=== PATIENT | female | born 1960 | race Caucasian/White ===

== ENCOUNTER 2018-02-19 10:41 | Emergency (ER) | payer BC ==
[~2018-02-19] VITALS: Ht 165.1 cm; Wt 81.0 kg
[2018-02-19] MEDS ORDERED: dexamethasone sod phosphate 10mg/ml inj IV STA (11:41)
[2018-02-19] MEDS ORDERED: diphenhydrAMINE 50 mg/ml inj IV ONE (11:45)
[2018-02-19] MEDS ORDERED: proCHLORperazine 10 MG/2 ml inj IV ONE (11:45)
[2018-02-19] MEDS ORDERED: normal saline 1000ML IV soln IVB ONE (11:45)
[2018-02-19 13:52] VITALS: BP 116/65
== END 2018-02-19 13:53 | disposition home or self-care (01) ==
LOC: ER 10:41
DX: G43.909 Migraine, unspecified, not intractable, without status migrainosus (principal)
CPT/HCPCS: 96374; 96375; 99285; J0780; J1100; J1200

== ENCOUNTER 2018-03-04 08:11 | Outpatient (CLI) | payer BC ==
[2018-03-04 09:28] LABS: BASOPHILS % (AUTO) 0.8 % (0-1); EOSINOPHILS # (AUTO) 0.1 X10'3 (0-0.9); EOSINOPHILS % (AUTO) 2.3 % (0-6); HEMATOCRIT 39.1 % (35.0-45.0); HEMOGLOBIN 13.2 g/dl (12.0-16.0); LYMPHOCYTES # (AUTO) 1.3 X10'3 (1.1-4.8); LYMPHOCYTES % (AUTO) 23.2 % (21-51); MEAN CORPUSCULAR HEMOGLOBIN 28.3 PG (27.0-31.0); MEAN CORPUSCULAR HGB CONC 33.7 % (33.0-36.5); MEAN CORPUSCULAR VOLUME 83.8 FL (78-98); MEAN PLATELET VOLUME 7.7 FL (7.4-10.4); MONOCYTES # (AUTO) 0.4 X10'3 (0-0.9); MONOCYTES % (AUTO) 7.1 % (2-12); NEUTROPHILS # (AUTO) 3.8 X10'3 (1.8-7.7); NEUTROPHILS % (AUTO) 66.6 % (42-75); PLATELET COUNT 242 X10'3 (140-440); RED BLOOD COUNT 4.66 X10'6 (4.20-5.60); RED CELL DISTRIBUTION WIDTH 13.3 % (11.5-14.5); WHITE BLOOD COUNT 5.7 X10'3 (4.5-11.0)
[2018-03-04 09:29] LABS: CLARITY,URINE CLEAR (Clear); COLOR,URINE YELLOW (Yellow); GLUCOSE, URINE NEGATIVE (Neg); KETONES,URINE NEGATIVE (Neg); LEUKOCYTE ESTERASE ,URINE TRACE (Neg); NITRITES, URINE NEGATIVE (Neg); OCCULT BLOOD,URINE TRACE-LYSED (Neg); PROTEIN,URINE NEGATIVE (Neg); UROBILINOGEN,URINE 0.2 E.U/dL (0.2-1.0)
[2018-03-04 09:31] LABS: UA COLLECTION TYPE CLN CATCH MIDSTREAM
[2018-03-04 09:39] LABS: MUCUS STRANDS FEW /LPF (Neg); RBC,URINE 0-2 /HPF (0-2); SQUAMOUS EPITHELIAL CELL,UR FEW /LPF (FEW); WBC,URINE 0-4 /HPF (0-4)
[2018-03-04 09:40] LABS: BACTERIA,URINE 1+ /HPF (Neg)
[2018-03-04 09:54] LABS: ALANINE AMINOTRANSFERASE 51 U/L (12-78); ALBUMIN 3.8 G/DL (3.4-5.0); ALBUMIN/GLOBULIN RATIO 1.1 (1.1-1.5); ALKALINE PHOSPHATASE 82 IU/L (46-116); ANION GAP 8 (8-16); ASPARTATE AMINO TRANSFERASE 24 U/L (10-37); BILIRUBIN,TOTAL 0.5 MG/DL (0.1-1.0); BLOOD UREA NITROGEN 16 MG/DL (7-18); BUN/CREATININE RATIO 22.2 (6.6-38.0); CALCIUM 9.1 MG/DL (8.5-10.1); CHLORIDE 102 MMOL/L (99-107); CHOL/HDL RATIO 3.6 (0.00-4.99); CHOLESTEROL 214 MG/DL (0-200); CREATININE 0.72 MG/DL (0.40-0.90); GLUCOSE 101 MG/DL (70-104); HDL CHOLESTEROL 60 MG/DL (35-60); LDL CHOLESTEROL 142 MG/DL (50-100); POTASSIUM 3.7 MMOL/L (3.5-5.1); SODIUM 139 MMOL/L (135-145); TOTAL CARBON DIOXIDE 28.7 MMOL/L (24-32); TOTAL PROTEIN 7.2 G/DL (6.4-8.2); TRIGLYCERIDES 71 MG/DL (20-135); eGFR 84 ML/MIN
[2018-03-05 09:15] LABS: VITAMIN D, 25-HYDROXY 49.1 ng/mL (30.0-100.0)
[2018-03-06 13:21] LABS: VITAMIN D, 1,25 DIHYDROXY 48.9 pg/mL (19.9-79.3)
== END 2018-03-04 23:59 | disposition home or self-care (01) ==
LOC: LAB 08:11
PROVIDERS: ATTEND Family Medicine
DX: Z00.00 Encounter for general adult medical examination without abnormal findings (principal); G43.909 Migraine, unspecified, not intractable, without status migrainosus; F17.200 Nicotine dependence, unspecified, uncomplicated
CPT/HCPCS: 36415; 80053; 80061; 81001; 82306; 82652; 84439; 84443; 85025; 86140; 87088

== ENCOUNTER 2018-03-04 12:31 | Outpatient (CLI) | payer BC | END 2018-03-04 23:59 | disposition home or self-care (01) | LOC: RAD 12:31 | PROVIDERS: ATTEND Obstetrics & Gynecology | DX: R10.2 Pelvic and perineal pain (principal); F17.200 Nicotine dependence, unspecified, uncomplicated | CPT/HCPCS: 76856 ==

== ENCOUNTER 2018-03-11 19:41 | Emergency (ER) | payer BC, OTHER ==
[~2018-03-11] VITALS: Ht 167.6 cm; Wt 79.5 kg
[2018-03-11 20:14] VITALS: BP 136/74
[2018-03-11] MEDS ORDERED: erythromycin ophthalmic ointment 1gm tube EACHEYE ONE (21:10)
== END 2018-03-11 21:56 | disposition home or self-care (01) ==
LOC: ER 19:41
DX: Z77.29 Contact with and (suspected) exposure to other hazardous substances (principal); G43.909 Migraine, unspecified, not intractable, without status migrainosus
CPT/HCPCS: 99282

== ENCOUNTER 2018-04-17 11:13 | Observation (INO) | payer OTHER ==
[2018-04-15 10:41] LABS: BASOPHILS # (AUTO) 0.1 X10'3 (0-0.2); BASOPHILS % (AUTO) 1.2 % (0-1); EOSINOPHILS # (AUTO) 0.1 X10'3 (0-0.9); EOSINOPHILS % (AUTO) 2.6 % (0-6); LYMPHOCYTES # (AUTO) 1.2 X10'3 (1.1-4.8); MEAN CORPUSCULAR HGB CONC 33.1 % (33.0-36.5); MEAN CORPUSCULAR VOLUME 84.5 FL (78-98); MEAN PLATELET VOLUME 7.8 FL (7.4-10.4); MONOCYTES # (AUTO) 0.3 X10'3 (0-0.9); NEUTROPHILS # (AUTO) 2.6 X10'3 (1.8-7.7); NEUTROPHILS % (AUTO) 61.2 % (42-75); PRE OP HEMOGLOBIN 13.6 g/dL (12.0-16.0); PRE OP PLATELET COUNT 249 X10'3 (140-440); RED BLOOD COUNT 4.85 X10'6 (4.20-5.60); RED CELL DISTRIBUTION WIDTH 12.7 % (11.5-14.5)
[2018-04-15 10:50] LABS: ALBUMIN 3.7 G/DL (3.4-5.0); BLOOD UREA NITROGEN 10 MG/DL (7-18); BUN/CREATININE RATIO 14.7 (6.6-38.0); CHLORIDE 103 MMOL/L (99-107); CREATININE 0.68 MG/DL (0.40-0.90); PRE OP ANION GAP 9 (8-16); PRE OP BILIRUB, TOTAL 0.4 MG/DL (0.0-1.0); PRE OP GLUCOSE 92 MG/DL (70-104); PRE OP POTASSIUM 4.1 MMOL/L (3.4-5.1); PRE OP SODIUM 140 MMOL/L (135-145); TOTAL PROTEIN 7.4 G/DL (6.4-8.2); eGFR 89 ML/MIN
[2018-04-15 10:51] LABS: ALKALINE PHOSPHATASE 85 IU/L (46-116); PRE OP ALT 52 U/L (30-65); PRE OP AST 23 U/L (10-37)
[2018-04-15 10:52] LABS: PRE OP INR 0.9 INR; PRE OP PROTIME 9.5 SECONDS (9.0-12.0)
[~2018-04-17] VITALS: Ht 167.6 cm; Wt 79.7 kg
[2018-04-17] VITALS (18 sets, daily range): BP systolic 100–131; BP diastolic 55–88
[~2018-04-17 11:13] MED LIST: RIZA5TAB18 SL; SUMA100T PO; ceFOXitin 2 GM ADDVANTGE BAG 50 ML IV ONE; ceFOXitin 2 GM ADDvantage bag 100 ML IV ONE; famotidine 20mg tablet PO ONE
[2018-04-17] MEDS ORDERED: LIDOcaine 1% (10mg/ml) 2ml vial ONE (11:36)
[2018-04-17] MEDS ORDERED: SENN-29 PO (12:07)
[2018-04-17] MEDS: ringers solution, lacted 1,000 ML IV SCH ×4 (12:09→19:35)
[2018-04-17] MEDS ORDERED: CETI-102 PO (12:25)
[2018-04-17] MEDS ORDERED: BUPIVAcaine/PF 2.5mg/ml (0.25%) 10ml vial ONE (12:26)
[2018-04-17] MEDS ORDERED: sevoflurane 250ml liquid IH ONE (12:54)
[2018-04-17] MEDS ORDERED: propofol inj 20 ML IV ONE (13:00)
[2018-04-17] MEDS ORDERED: fentaNYL /PF 50mcg/ml 5ml ampule ONE (13:00)
[2018-04-17] MEDS ORDERED: rocuronium 10mg/ml inj IV ONE ×2 (13:00→16:13)
[2018-04-17] MEDS ORDERED: midazolam 2 mg/2 ml injection ONE (13:00)
[2018-04-17] MEDS ORDERED: ondansetron/PF 4mg/2ml inj IV PRN ×2 (14:50→16:40)
[2018-04-17] MEDS ORDERED: meperidine/PF 25mg/ml syringe IV PRN ×3 (14:50)
[2018-04-17] MEDS ORDERED: morphine 4 MG/ML inj SYRINge IV PRN ×2 (14:50)
[2018-04-17] MEDS ORDERED: ringers solution, lacted 1,000 ML IV SCH (14:50)
[2018-04-17] MEDS ORDERED: proCHLORperazine 10 MG/2 ml inj IV PRN (14:50)
[2018-04-17] MEDS ORDERED: ondansetron/PF 4mg/2ml inj ONE (16:13)
[2018-04-17] MEDS ORDERED: dexamethasone sod phosphate 4mg/ml inj. ONE (16:13)
[2018-04-17] MEDS ORDERED: LIDOcaine 1% 30ml preserv. free vial ONE (16:17)
[2018-04-17] MEDS ORDERED: morphine 10mg/ml inj. ONE (16:17)
[2018-04-17] MEDS ORDERED: neostigmine methylsulfate 1 MG/ML 10ml vial ONE (16:24)
[2018-04-17] MEDS ORDERED: glycopyrrolate 0.2mg/ml inj ONE (16:24)
[2018-04-17] MEDS ORDERED: HYDROcodone/acetaminophen 10/325mg tab PO PRN (16:40)
[2018-04-17] MEDS ORDERED: temazepam 15mg capsule PO PRN (16:40)
[2018-04-17] MEDS ORDERED: ketorolac tromethamine 15mg/ml inj. IV PRN (16:40)
[2018-04-17] MEDS ORDERED: diphenhydrAMINE 50 mg/ml inj IV PRN (16:40)
--- NOTE | 2018-04-17 16:44 | NUR ---
Received from OR via SURGICAL BED , accompanied by Anesthesiologist GIRISH and report given by Anesthesiolgist. PATIENT WITH 20G PIV IN LEFT UE RUNNING LR AT 100. PATIENT WITH 3 ABDOMINAL LAP SITES WITH SKIN AFFIX PRESENT. NO DRAINAGE. MUÑIZ CATHETER PRESENT. CLEAR YELLOW URINE IN BAG. MOSHE AHMADI AND RACHEL MISHRA. Addendum: 04/17/18 at 1657 by Tra Aguillon RN, RN Amended: Links added.
[2018-04-17] MEDS ORDERED: ibuprofen 200mg tablet PO PRN (17:10)
[2018-04-17] MEDS ORDERED: normal saline 500ml IV soln 500 ML IV ONE (17:10)
[2018-04-17] MEDS ORDERED: HYDROcodone/acetaminophen 5mg/325mg tablet PO PRN (17:10)
--- NOTE | 2018-04-17 17:42 | NUR ---
Received report from recovery nurse Tra SMYTH. Awaiting pt arrival to room 357B.
--- NOTE | 2018-04-17 17:44 | NUR ---
Report called to receiving nurse. Transferred via SURGICAL BED WITH 2 BAGS OF Belongings . Special Issues communicated to receiving SURGICAL nurse. DENIES PAIN, ONLY CRAMPING TO LOW ABDOMEN AT THIS TIME. RN PRESENT TO ASSIST WITH SET UP AND ASSESS PATIENT. PATIENT ALERT AND ORIENTED. IV INTACT. Addendum: 04/17/18 at 1816 by Tra Aguillon RN RN Amended: Links added.
--- NOTE | 2018-04-17 18:02 | NUR ---
Patient arrived to room 357B. Abdomen soft, VSS. Oriented pt to call light, bed controls.
[2018-04-17] MEDS: simethicone 80mg chew tab PO SCH (18:09)
--- NOTE | 2018-04-17 18:40 | NUR ---
Problems reprioritized. Patient report given, questions answered & plan of care reviewed with Yarelis SMYTH.
--- NOTE | 2018-04-17 18:40 | NUR ---
Received report from Angie SMYTH pt just returned from surgery awake and alert on 2L of O2 via NC in no apparent distress.
[2018-04-17] MEDS ORDERED: sennosides/docusate sodium tablet PO PRN (19:20)
[2018-04-17] MEDS ORDERED: SUMAtriptan 25 MG tablet PO PRN (19:20)
[2018-04-17] MEDS: ibuprofen 200mg tablet PO SCH (20:00)
[2018-04-17] MEDS: ondansetron/PF 4mg/2ml inj IV PRN (20:53)
[2018-04-18 00:05] VITALS: BP 117/65
[2018-04-18] MEDS: ibuprofen 200mg tablet PO SCH ×2 (02:00→07:46)
[2018-04-18] MEDS: ondansetron/PF 4mg/2ml inj IV PRN (03:18)
[2018-04-18] MEDS: ringers solution, lacted 1,000 ML IV SCH (05:11)
--- NOTE | 2018-04-18 05:47 | NUR ---
DC'd patients F/C and stopped pts fluid. pt up to bathroom
[2018-04-18 05:56] VITALS: BP 127/67
--- NOTE | 2018-04-18 06:10 | NUR ---
Patient in room [facility]. I have received report from Taylor SMYTH and had the opportunity to ask questions and assume patient care.
--- NOTE | 2018-04-18 06:28 | NUR ---
Gave report to Donna SMYTH pt is awake and alert on RA, pt states her headache has gotten only slightly better
[2018-04-18 06:56] LABS: BASOPHILS % (AUTO) 0.2 % (0-1); EOSINOPHILS % (AUTO) 0.1 % (0-6); HEMATOCRIT 35.2 % (35.0-45.0); LYMPHOCYTES % (AUTO) 7.5 % (21-51); MEAN CORPUSCULAR HEMOGLOBIN 28.7 PG (27.0-31.0); MEAN CORPUSCULAR VOLUME 84.4 FL (78-98); MEAN PLATELET VOLUME 8.4 FL (7.4-10.4); MONOCYTES # (AUTO) 0.5 X10'3 (0-0.9); MONOCYTES % (AUTO) 4.1 % (2-12); NEUTROPHILS # (AUTO) 11.2 X10'3 (1.8-7.7); NEUTROPHILS % (AUTO) 88.1 % (42-75); PLATELET COUNT 200 X10'3 (140-440); RED BLOOD COUNT 4.18 X10'6 (4.20-5.60); RED CELL DISTRIBUTION WIDTH 12.5 % (11.5-14.5); WHITE BLOOD COUNT 12.7 X10'3 (4.5-11.0)
[2018-04-18 07:00] VITALS: BP 105/52
[2018-04-18] MEDS: simethicone 80mg chew tab PO SCH (07:46)
[2018-04-18] MEDS ORDERED: cetirizine 10mg tablet PO SCH (08:00)
--- NOTE | 2018-04-18 14:43 | NUR ---
patient appears stable , phone call from Dr Funes to say that patient can be DC if can void, eat reg food, ambulate, pain controlled. patient met all criteria ALl DC instructions given to patient. DC home via own private car.
== END 2018-04-18 14:36 | disposition home or self-care (01) ==
LOC: PAS 11:13 → EDSTATUS 13:15 → SUR 3N 17:09
PROVIDERS: ADMIT Obstetrics & Gynecology; ATTEND Obstetrics & Gynecology
DX: D25.2 Subserosal leiomyoma of uterus (principal); N88.8 Other specified noninflammatory disorders of cervix uteri; R10.2 Pelvic and perineal pain; N95.0 Postmenopausal bleeding; Z87.42 Personal history of other diseases of the female genital tract
CPT/HCPCS: 36415; 58571; 80053; 85025; 85610; 85730; 86885; 86900; 86901; 87070; 93005; 96374; 96375; 96376; G0378; J0694; J1100; J1885; J2175; J2250; J2270; J2405; J2704; J2710; J3010; J3490; J7030; J7120; A6250; A7000; C1758

== ENCOUNTER 2018-05-12 10:44 | Outpatient (CLI) | payer OTHER ==
[~2018-05-12 10:44] MED LIST changes: +CETI-102 PO; +SENN-29 PO; -ceFOXitin 2 GM ADDVANTGE BAG 50 ML IV ONE; -ceFOXitin 2 GM ADDvantage bag 100 ML IV ONE; -famotidine 20mg tablet PO ONE
== END 2018-05-12 23:59 | disposition home or self-care (01) ==
LOC: LAB 10:44
PROVIDERS: ATTEND Obstetrics & Gynecology
DX: R39.9 Unspecified symptoms and signs involving the genitourinary system (principal)
CPT/HCPCS: 36415; 87088

== ENCOUNTER 2018-05-12 10:55 | Outpatient (CLI) | payer OTHER ==
[2018-05-12 11:34] LABS: BASOPHILS # (AUTO) 0.1 X10'3 (0-0.2); BASOPHILS % (AUTO) 1.4 % (0-1); EOSINOPHILS # (AUTO) 0.6 X10'3 (0-0.9); EOSINOPHILS % (AUTO) 9.8 % (0-6); HEMATOCRIT 35.1 % (35.0-45.0); HEMOGLOBIN 11.9 g/dl (12.0-16.0); LYMPHOCYTES # (AUTO) 1.5 X10'3 (1.1-4.8); LYMPHOCYTES % (AUTO) 25.2 % (21-51); MEAN CORPUSCULAR HEMOGLOBIN 28.2 PG (27.0-31.0); MEAN CORPUSCULAR VOLUME 82.9 FL (78-98); MEAN PLATELET VOLUME 7.1 FL (7.4-10.4); MONOCYTES # (AUTO) 0.4 X10'3 (0-0.9); NEUTROPHILS # (AUTO) 3.4 X10'3 (1.8-7.7); NEUTROPHILS % (AUTO) 56.6 % (42-75); PLATELET COUNT 334 X10'3 (140-440); RED BLOOD COUNT 4.24 X10'6 (4.20-5.60)
[2018-05-12 11:36] LABS: CLARITY,URINE CLEAR (Clear); COLOR,URINE YELLOW (Yellow); GLUCOSE, URINE NEGATIVE (Neg); KETONES,URINE NEGATIVE (Neg); LEUKOCYTE ESTERASE ,URINE NEGATIVE (Neg); NITRITES, URINE NEGATIVE (Neg); OCCULT BLOOD,URINE SMALL (Neg); PROTEIN,URINE NEGATIVE (Neg); UROBILINOGEN,URINE 0.2 E.U/dL (0.2-1.0)
[2018-05-12 11:37] LABS: UA COLLECTION TYPE CLN CATCH MIDSTREAM
[2018-05-12 11:42] LABS: SQUAMOUS EPITHELIAL CELL,UR FEW /LPF (FEW)
[2018-05-12 11:43] LABS: BACTERIA,URINE FEW /HPF (Neg); RBC,URINE 0-2 /HPF (0-2); WBC,URINE 0-4 /HPF (0-4)
[2018-05-12 11:44] LABS: STARCH,URINE FEW /HPF (NEGATIVE)
[2018-05-12 12:02] LABS: ALANINE AMINOTRANSFERASE 26 U/L (12-78); ALBUMIN 3.3 G/DL (3.4-5.0); ALBUMIN/GLOBULIN RATIO 0.9 (1.1-1.5); ALKALINE PHOSPHATASE 88 IU/L (46-116); ANION GAP 8 (8-16); ASPARTATE AMINO TRANSFERASE 11 U/L (10-37); BILIRUBIN,TOTAL 0.2 MG/DL (0.1-1.0); BLOOD UREA NITROGEN 12 MG/DL (7-18); BUN/CREATININE RATIO 17.1 (6.6-38.0); CALCIUM 8.8 MG/DL (8.5-10.1); CHLORIDE 105 MMOL/L (99-107); CHOL/HDL RATIO 3.6 (0.00-4.99); CHOLESTEROL 165 MG/DL (0-200); GLUCOSE 94 MG/DL (70-104); HDL CHOLESTEROL 46 MG/DL (35-60); LDL CHOLESTEROL 108 MG/DL (50-100); POTASSIUM 4.2 MMOL/L (3.5-5.1); SODIUM 141 MMOL/L (135-145); TOTAL CARBON DIOXIDE 28.2 MMOL/L (24-32); TOTAL PROTEIN 7.1 G/DL (6.4-8.2); TRIGLYCERIDES 93 MG/DL (20-135); eGFR 86 ML/MIN
[2018-05-13 08:18] LABS: VITAMIN D, 25-HYDROXY 41.8 ng/mL (30.0-100.0)
== END 2018-05-12 23:59 | disposition home or self-care (01) ==
LOC: LAB 10:55
PROVIDERS: ATTEND Family Medicine
DX: Z00.00 Encounter for general adult medical examination without abnormal findings (principal); G43.909 Migraine, unspecified, not intractable, without status migrainosus; J45.909 Unspecified asthma, uncomplicated; Z79.899 Other long term (current) drug therapy
CPT/HCPCS: 36415; 80053; 80061; 81001; 82306; 82652; 84439; 84443; 85025; 86140

== ENCOUNTER 2018-07-02 09:18 | Day surgery (SDC) | payer OTHER ==
[~2018-07-02] VITALS: Ht 165.1 cm; Wt 80.9 kg
[2018-07-02] MEDS ORDERED: fentaNYL/PF 50MCG/1 ML 2ML syringe ONE (09:25)
[2018-07-02] MEDS ORDERED: MIDAZolam 5mg/5ml vial ONE (09:25)
[2018-07-02 09:27] VITALS: BP 139/86
[2018-07-02 10:07] VITALS: BP 111/71
[2018-07-02 10:17] VITALS: BP 111/69
[2018-07-02 10:27] VITALS: BP 115/75
[2018-07-02 10:37] VITALS: BP 112/66
== END 2018-07-02 10:52 | disposition home or self-care (01) ==
LOC: GI LAB 09:18
PROVIDERS: ATTEND Internal Medicine Gastroenterology
DX: Z12.11 Encounter for screening for malignant neoplasm of colon (principal); G43.909 Migraine, unspecified, not intractable, without status migrainosus
CPT/HCPCS: 45378; 99152; J2250; J3010; J7030; 99153; A4620

== ENCOUNTER 2018-09-06 05:01 | Emergency (ER) | payer OTHER ==
[~2018-09-06] VITALS: Ht 165.1 cm; Wt 82.8 kg
[~2018-09-06 05:01] MED LIST changes: -SENN-29 PO
[2018-09-06] MEDS ORDERED: proCHLORperazine 10 MG/2 ml inj IV ONE (05:20)
[2018-09-06] MEDS ORDERED: ketorolac trometh. 30mg/ml inj. IV ONE (05:20)
[2018-09-06] MEDS ORDERED: normal saline 1000ML IV soln IVB ONE (05:20)
[2018-09-06] MEDS ORDERED: diphenhydrAMINE 50 mg/ml inj IV ONE (05:25)
[2018-09-06 06:58] VITALS: BP 120/60
== END 2018-09-06 07:00 | disposition home or self-care (01) ==
LOC: ER 05:02
DX: G43.909 Migraine, unspecified, not intractable, without status migrainosus (principal); H53.149 Visual discomfort, unspecified; M54.2 Cervicalgia; Z87.442 Personal history of urinary calculi; Z79.899 Other long term (current) drug therapy
CPT/HCPCS: 96374; 96375; 99283; J0780; J1200; J1885; J7030

== ENCOUNTER 2018-12-15 01:51 | Outpatient (CLI) | payer OTHER ==
[~2018-12-15 01:51] MED LIST changes: +PROC5TAB56 PO; -RIZA5TAB18 SL; +RIZA5TAB83 SL; +SUMA25TA35 PO
== END 2018-12-15 23:59 | disposition home or self-care (01) ==
LOC: DIABETIC 01:51
PROVIDERS: ATTEND Family Medicine
DX: E66.9 Obesity, unspecified (principal); R63.4 Abnormal weight loss; J45.909 Unspecified asthma, uncomplicated
CPT/HCPCS: 97802

== ENCOUNTER 2019-06-15 03:24 | Emergency (ER) | payer OTHER ==
[~2019-06-15] VITALS: Ht 165.1 cm; Wt 81.0 kg
[~2019-06-15 03:24] MED LIST changes: -CETI-102 PO; +CETI-90 PO
[2019-06-15] MEDS ORDERED: proCHLORperazine 10 MG/2 ml inj IV ONE (05:15)
[2019-06-15] MEDS ORDERED: diphenhydrAMINE 50 mg/ml inj IV ONE (05:15)
[2019-06-15] MEDS ORDERED: ketorolac tromethamine 15mg/ml inj. IV ONE (05:15)
[2019-06-15] MEDS ORDERED: normal saline 1000ML IV soln IVB ONE (05:15)
[2019-06-15 05:43] VITALS: BP 140/84
--- NOTE | 2019-06-15 05:53 | NUR ---
PIV PLACED, NS 1 LITER STARTED, GIVEN BENEDRYL, TORADOL AND COMPAZINE . PT REPROTS STARTING TO FEEL RELIEF ALMOST IMMEDIATELY. VSS.
--- NOTE | 2019-06-15 06:50 | NUR ---
PT REPORTS DORADO PAIN IS GONE NOW, 0/10
== END 2019-06-15 06:52 | disposition home or self-care (01) ==
LOC: ER 03:25
DX: G43.909 Migraine, unspecified, not intractable, without status migrainosus (principal); Z87.442 Personal history of urinary calculi; Z79.899 Other long term (current) drug therapy
CPT/HCPCS: 96374; 96375; 99284; J0780; J1200; J1885; J7030

== ENCOUNTER 2019-10-15 09:35 | Emergency (ER) | payer SELFPAY ==
[~2019-10-15] VITALS: Ht 167.6 cm; Wt 86.8 kg
[2019-10-15] MEDS ORDERED: dexamethasone 4mg tablet PO ONE (10:05)
[2019-10-15] MEDS ORDERED: proCHLORperazine 10 MG/2 ml inj IM ONE (10:05)
[2019-10-15] MEDS ORDERED: ketorolac trometh inj. 60 MG/2 ML VIAL IM ONE (10:05)
[2019-10-15 10:30] VITALS: BP 129/83
== END 2019-10-15 11:06 | disposition home or self-care (01) ==
LOC: ER 09:35
DX: G43.909 Migraine, unspecified, not intractable, without status migrainosus (principal); R11.0 Nausea; H53.149 Visual discomfort, unspecified; Z87.442 Personal history of urinary calculi; Z79.899 Other long term (current) drug therapy
CPT/HCPCS: 96372; 99284; J0780; J1885

== ENCOUNTER 2019-10-19 16:19 | Emergency (ER) | payer SELFPAY ==
[~2019-10-19] VITALS: Ht 165.1 cm; Wt 85.5 kg
[2019-10-19 16:31] VITALS: BP 127/87
--- NOTE | 2019-10-19 16:39 | NUR ---
patient seen and assessed by provider.
== END 2019-10-19 16:47 | disposition home or self-care (01) ==
LOC: ER 16:20
DX: J02.9 Acute pharyngitis, unspecified (principal); G43.909 Migraine, unspecified, not intractable, without status migrainosus; R06.02 Shortness of breath; R05 Cough; Z87.442 Personal history of urinary calculi; Z90.710 Acquired absence of both cervix and uterus; Z79.899 Other long term (current) drug therapy
CPT/HCPCS: 36415; 99281; 99283

== ENCOUNTER 2023-05-11 21:06 | Emergency (ER) | payer BC, OTHER ==
[~2023-05-11] VITALS: Ht 167.6 cm; Wt 84.1 kg
[2023-05-11 21:10] VITALS: BP 149/69; PULSE 71; RESP 18; TEMP 97.4; O2SAT 98
[2023-05-11 21:45] LABS: BASOPHILS % (AUTO) 0.4 % (0-1); EOSINOPHILS # (AUTO) 0.1 X10'3 (0-0.9); EOSINOPHILS % (AUTO) 1.2 % (0-6); HEMATOCRIT 40.9 % (35.0-45.0); HEMOGLOBIN 13.9 g/dl (12.0-16.0); LYMPHOCYTES # (AUTO) 2.6 X10'3 (1.1-4.8); LYMPHOCYTES % (AUTO) 27.8 % (21-51); MEAN CORPUSCULAR HEMOGLOBIN 28.1 PG (27.0-31.0); MEAN CORPUSCULAR HGB CONC 34.1 g/dL (33.0-36.5); MEAN CORPUSCULAR VOLUME 82.4 FL (78-98); MEAN PLATELET VOLUME 8.5 FL (7.4-10.4); MONOCYTES # (AUTO) 0.5 X10'3 (0-0.9); MONOCYTES % (AUTO) 5.6 % (2-12); PLATELET COUNT 221 X10'3 (140-440); RED BLOOD COUNT 4.96 X10'6 (4.20-5.60); RED CELL DISTRIBUTION WIDTH 13.5 % (11.5-14.5); WHITE BLOOD COUNT 9.2 X10'3 (4.5-11.0)
[2023-05-11 22:15] LABS: ALANINE AMINOTRANSFERASE 35 U/L (12-78); ALBUMIN 4.1 G/DL (3.4-5.0); ALBUMIN/GLOBULIN RATIO 1.2 (1.1-1.5); ALKALINE PHOSPHATASE 75 IU/L (46-116); ANION GAP 9 (8-16); ASPARTATE AMINO TRANSFERASE 17 U/L (10-37); BILIRUBIN,TOTAL 0.4 MG/DL (0.1-1.0); BLOOD UREA NITROGEN 16 MG/DL (7-18); CALCIUM 9.2 MG/DL (8.5-10.1); CHLORIDE 100 MMOL/L (99-107); GLUCOSE 133 MG/DL (70-104); POTASSIUM 3.4 MMOL/L (3.5-5.1); SODIUM 138 MMOL/L (135-145); TOTAL CARBON DIOXIDE 29.2 MMOL/L (24-32); TOTAL PROTEIN 7.5 G/DL (6.4-8.2); eCRCL 55 ML/MIN; eGFR 56 ML/MIN
[2023-05-11 22:21] LABS: PRO BRAIN NATRIURETIC PEPTIDE 43 PG/ML (0-125)
== END 2023-05-11 23:58 | disposition left against medical advice (07) ==
LOC: ER 21:07
DX: R07.89 Other chest pain (principal); M54.9 Dorsalgia, unspecified; Z53.21 Procedure and treatment not carried out due to patient leaving prior to being seen by health care provider
CPT/HCPCS: 36415; 71045; 80053; 83880; 84484; 85025; 93005; 99281; 99285